=== PATIENT | male | born 1950 | race African-American/Black ===

== ENCOUNTER 2018-01-30 01:41 | Inpatient (IN) | payer OTHER ==
[~2018-01-30] VITALS: Ht 177.8 cm; Wt 88.5 kg
[~2018-01-30 01:41] MED LIST: ASPIRIN EC81 M1 PO; GOOD SENSE ASPI81 M1 PO; LYRICA75 M1 PO; METFORMIN HCL500 M2 PO; METFORMIN HCL500 MG PO; MULTIVITAMIN1 TAB PO; MULTIVITAMINS1 EAC9 PO; OMEGA 3 PO; OS-CAL 500+D31 EAC1 PO; POTASSIUM CITR10 ME1 PO; TRAMADOL-ACETA1 EACH PO; [UNRECOGNIZED DRUG - OTHER] PO
--- NOTE | 2018-01-30 12:41 | Patient Discharge Instructions ---
Acute Coronary Syndrome Inclusion Criteria At DC or during hospital stay patient has or had the following: ACS DIAGNOSIS No Discharge Core Measures Meds if any: Prescribed or Continued at Discharge Meds if any: NOT Prescribed or Continued at Discharge Congestive Heart Failure Inclusion Criteria At DC or during hospital stay patient has or had the following: CHF DIAGNOSIS No Discharge Core Measures Meds if any: Prescribed or Continued at Discharge Meds if any: NOT Prescribed or Continued at Discharge Cerebrovascular accident Inclusion Criteria At DC or during hospital stay patient has or had the following: CVA/TIA Diagnosis No Discharge Core Measures Meds if any: Prescribed or Continued at Discharge Meds if any: NOT Prescribed or Continued at Discharge Venous thromboembolism Inclusion Criteria VTE Diagnosis No VTE Type NONE VTE Confirmed by (Test) NONE Discharge Core Measures - Per Current guidelines, there needs to be overlap - treatment for the first 5 days of Warfarin therapy. - If discharged on Warfarin prior to 5 days of - overlap therapy, the patient will need to be - assessed for post discharge needs including - *Post discharge parental anticoagulation - *Warfarin and/or parental anticoagulation education - *Follow up date to check INR post discharge At least 5 days overlap therapy as Inpatient No Meds if any: Prescribed or Continued at Discharge Note: Overlap Therapy is Warfarin and Anticoagulant Meds if any: NOT Prescribed or Continued at Discharge
[2018-01-30] MEDS ORDERED: PERCOCET 5-3251 EACH PO (12:45)
[2018-01-30] MEDS ORDERED: TYLENOL EXTRA500 M2 PO (12:45)
[2018-01-30] MEDS ORDERED: COLACE100 M1 PO (12:45)
[2018-01-30] MEDS ORDERED: VITAMIN D31000 UNI2 PO (12:45)
[2018-01-30] MEDS ORDERED: DULCOLAX10 M1 RC (12:45)
[2018-01-30] MEDS ORDERED: MILK OF MA400 MG/52 PO (12:45)
--- NOTE | 2018-01-30 13:01 | Operative Report ---
Operative/Inv Procedure Report Surgery Date: 01/30/18 Name of Procedure: Anterior cervical inspection of fusion mass. Removal of hardware 3 levels anterior. Discectomy anterior decompression C7-T1. Anterior 2 level plate fixation C6 C7 T1 disc cage fusion C7-T1 with autologous iliac crest. Harvesting of anterior iliac crest right anterior. Reconstruction of donor site with Master graft. Use of fluoroscopy. Neuro lysis right T bruit Pre-Operative Diagnosis: Degenerative disc disease and radiculopathy C7-T1 status post anterior fusion. Post-Operative Diagnosis: same Estimated Blood Loss: less than 50ml Surgeon/Pit Crew Support Worker: Candido TOVAR,Joe Ramos M.D. Anesthesia: general endotracheal tube Operative/Procedure Note Note: After adequate general anesthesia was achieved the patient was placed in the supine position with the shoulders taped to the side and the head turned to the left. The previous vertical incision was used and entered sharply a blunt dissection was carried medial to the neurovascular bundle lateral to the visceral structures. Esophagus was easily identified. The deep retractors were placed. The anterior fusion was inspected and found to be solid the plate was removed easily. The dissection was carried distally over the C7-T1 interval. The disc space was entered sharply with the scalpel and debrided with the curettes and disc rongeurs. The dissection was carried posteriorly through the annulus and posterior longitudinal ligament to decompress the canal. There is significant stenosis causing adherence to these right T1 nerve root and a neuro lysis of the nerve root was performed. An incision was made over the right anterior iliac crest a subperiosteal dissection was carried medial and lateral to the crest. The oscillating saw was used to collect 2 cortical bone grafts. The wound was irrigated packed with Master graft and closed in layers with absorbable suture with hayley in the skin. The trial was used to select an 8 mm interdiscal cage which was then packed with autologous bone graft and tamped into position well away from the neural canal and anterior plate was then applied with excellent purchase from C6 to T1. Bilateral screws were placed. The entire construct was checked in AP and lateral plane and found to be appropriate. The wound was irrigated a closure the platysma was performed with absorbable suture the skin was closed with subcuticular nylon. After placement of sterile dressings the patient was placed in a cervical collar as were the stretcher
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
--- NOTE | 2018-01-30 14:22 | RADIOLOGY REPORT ---
EXAMINATION: XR CERVICAL SPINE CLINICAL INFORMATION: C7-T1 fusion in OR COMPARISON: 11/22/2014 TECHNIQUE: 2 fluoroscopic views of the cervical spine. Total fluoroscopic time 8.3 seconds. FINDINGS: The submitted images demonstrate an endotracheal tube and an orogastric tube in place. There is plate and screw fixation hardware seen on the frontal view which is not definitively seen on the lateral view. The level is not definitively localized on this image. IMPRESSION: Fluoroscopic guidance for C7-T1 fusion. Please refer to operative report for further information.
--- NOTE | 2018-01-30 20:57 | PN- Neurosurgical ---
Subjective Subjective: Patient doing well since arriving to the floor. Pain controlled. Voided postop. Tolerating clears. No other issues or complaints. Objective Vital Signs and I&Os Intake & Output 01/30 1600 01/30 0800 01/30 0000 01/29 1600 01/29 0800 01/29 0000 Intake Total Output Total Balance Patient 190 lb Weight Physical Exam: General: A, A, NAD Neck: Cervical collar in place, dsg is c/d/i Extremities: equal strength b/l, neurovascular intact, Right Hip dsg c/d/i Current Medications: Current Medications Sig/Arben Start time Last Medication Dose Route Stop Time Status Admin Acetaminophen 650 MG Q4P PRN 01/30 1230 AC PO Acetaminophen 1,000 MG .STK-MED ONE 01/30 0635 DC IV 01/30 0636 Aspirin 81 MG DAILY 01/31 0900 AC PO Bisacodyl 10 MG DAILY NEEDED PRN 01/30 1230 AC MD Calcium/Vitamin D 1 TAB DAILY 01/31 0900 AC PO Cefazolin Sodium 1,000 MG IQ8 01/30 1600 AC 01/30 IV 01/31 0801 1830 Cefazolin Sodium 2,000 MG ONCE 01/30 0000 NR IV 01/30 2359 Cholecalciferol 1,000 IU DAILY 01/31 0900 AC PO Dexamethasone 4 MG .STK-MED ONE 01/30 1253 DC IM 01/30 1254 Docusate Sodium 100 MG BID 01/30 2100 AC 01/30 PO 2032 Fentanyl Citrate 100 MCG .STK-MED ONE 01/30 0635 DC IM 01/30 0636 Hydromorphone HCl 2 MG .STK-MED ONE 01/30 1219 DC IM 01/30 1220 Hydromorphone HCl 2 MG .STK-MED ONE 01/30 1207 DC IM 01/30 1208 Hydromorphone HCl 2 MG .STK-MED ONE 01/30 0635 DC IM 01/30 0636 Insulin Aspart 0 AT BEDTIME 01/30 2100 AC SC Insulin Aspart 0 TIDAC 01/30 1700 AC 01/30 SC 1831 Ketamine HCl 50 MG .STK-MED ONE 01/30 1000 DC IM 01/30 1001 Lactated Ringer's 1,000 ML Q10H 01/30 1245 AC IV Magnesium Hydroxide 30 ML Q8P PRN 01/30 1245 AC PO Metformin HCl 500 MG DAILY 01/31 09 AC PO Midazolam HCl 2 MG .STK-MED ONE 01/30 0636 DC IM 01/30 0637 Morphine Sulfate 1 MG Q3P PRN 01/30 1230 AC IV Multivitamins 1 TAB DAILY 01/31 09 AC Therapeutic PO Ondansetron HCl 4 MG Q6P PRN 01/30 1230 AC IV Oxycodone/ 1 TAB Q4P PRN 01/30 1230 AC 01/30 Acetaminophen PO 2032 Oxycodone/ 2 TAB Q4P PRN 01/30 1230 AC Acetaminophen PO Potassium Chloride 10 MEQ DAILY 01/31 09 AC PO Pregabalin 75 MG DAILY 01/31 09 AC PO Trimethobenzamide HCl 200 MG Q6P PRN 01/30 1230 AC IM Assessment/Plan Assessment/Plan This is a 67 yo male who is POD#0 from an acdf c7-t1 with iliac crest bone graft , doing well. Ambulate/PT eval tomorrow Pain control GI/DVT Px Home meds Continue henry pt requesting to keep in until Friday at midnight Cervical Collar Regular Diet Neurovascular checks Will follow Will d/w Dr. Rey Core Measures Venous Thromboembolism VTE Risk Factors No risk factors No Mechanical VTE Prophylaxis d/t N/A MechProphylax Ordered No VTE Pharm Prophylaxis d/t NA PharmProphylax ordered
[2018-01-30 21:48] VITALS: BP 158/80
[2018-01-31 01:02] VITALS: BP 142/70
[2018-01-31 06:00] VITALS: BP 122/60
--- NOTE | 2018-01-31 09:20 | PN- Medicine Consult ---
See Addendum Assessment/PlanMedical Consult Assessment/Plan Assessment: Impression 67 year old man * s/p cervical dscectomy and fusion * DM2 * RBBB Plan: Plan -please obtain as requested cbc and bmp -monitor glucose, continue metformin and sliding scale if needed -with respect to RBBB, noted in preop notes per chart -patient doing incentive spirometry - encouraged to continue to do so DVT prophylaxis at all times as deemed appropriate by surgery Subjective Subjective: pt seen and examined temp 98.4 122/60 bp o2 94% room air Objective Last 24 Hrs of Vital Signs/I&O Vital Signs Date Time Temp Pulse Resp B/P B/P Pulse O2 O2 Flow FiO2 Mean Ox Delivery Rate 01/31 06 98.4 89 18 122/60 94 Room Air 01/31 0102 97.9 98 18 142/70 95 Room Air 01/30 2148 98.1 95 20 158/80 94 Room Air 01/30 2057 Room Air Intake & Output 01/31 1600 01/31 0800 01/31 0000 Intake Total 1000 600 Output Total 1250 550 Balance -250 50 Intake, IV 800 400 Intake, Oral 200 200 Number 0 Bowel Movements Output, Urine 1250 550 Patient 195 lb 196 lb Weight Weight Bed scale Bed scale Measurement Method Physical Exam Other Physical Findings: gen awake and alert head/neck room air, saturating 94%, collar in place cvs s1 s2 lungs clear bilaterally abd soft ext without edema Current Medications: Current Medications Sig/Arben Start time Last Medication Dose Route Stop Time Status Admin Acetaminophen 650 MG Q4P PRN 01/30 1230 AC PO Aspirin 81 MG DAILY 01/31 09 AC 01/31 PO 0823 Bisacodyl 10 MG DAILY NEEDED PRN 01/30 1230 AC FL Calcium/Vitamin D 1 TAB DAILY 01/31 0900 AC 01/31 PO 0823 Cefazolin Sodium 1,000 MG IQ8 01/30 1600 DC 01/31 IV 01/31 0801 0823 Cefazolin Sodium 2,000 MG ONCE 01/30 0000 DC IV 01/30 2359 Cholecalciferol 1,000 IU DAILY 01/31 0900 AC 01/31 PO 0823 Dexamethasone 4 MG .STK-MED ONE 01/30 1253 DC IM 01/30 1254 Docusate Sodium 100 MG BID 01/30 2100 AC 01/31 PO 0823 Hydromorphone HCl 2 MG .STK-MED ONE 01/30 1306 DC IM 01/30 1307 Hydromorphone HCl 2 MG .STK-MED ONE 01/30 1219 DC IM 01/30 1220 Hydromorphone HCl 2 MG .STK-MED ONE 01/30 1207 DC IM 01/30 1208 Insulin Aspart 0 AT BEDTIME 01/30 2100 AC SC Insulin Aspart 0 TIDAC 01/30 1700 AC 01/31 SC 0825 Ketamine HCl 50 MG .STK-MED ONE 01/30 1000 DC IM 01/30 1001 Lactated Ringer's 1,000 ML Q10H 01/30 1245 DC 01/31 IV 0043 Magnesium Hydroxide 30 ML Q8P PRN 01/30 1245 AC PO Metformin HCl 500 MG DAILY 01/31 09 AC 01/31 PO 0823 Morphine Sulfate 2 MG Q3P PRN 01/31 0730 AC IV Morphine Sulfate 1 MG Q3P PRN 01/30 1230 DC IV Multivitamins 1 TAB DAILY 01/31 09 AC 01/31 Therapeutic PO 0823 Ondansetron HCl 4 MG Q6P PRN 01/30 1230 AC IV Oxycodone/ 1 TAB Q4P PRN 01/30 1230 AC 01/31 Acetaminophen PO 0051 Oxycodone/ 2 TAB Q4P PRN 01/30 1230 AC 01/31 Acetaminophen PO 0846 Potassium Chloride 10 MEQ DAILY 01/31 09 AC 01/31 PO 0823 Pregabalin 75 MG DAILY 01/31 09 AC 01/31 PO 0823 Trimethobenzamide HCl 200 MG Q6P PRN 01/30 1230 AC IM Results Last 24 Hrs Lab/James Results: pending
--- NOTE | 2018-01-31 09:41 | PN- Orthopedic ---
Subjective Subjective: pt seen by attending, refer to Dr. Rey's handwritten note in chart pt feeling well, some difficulty swallowing pills, though able to swallow solids and liquids. Objective Vital Signs and I&Os Vital Signs Date Time Temp Pulse Resp B/P B/P Pulse O2 O2 Flow FiO2 Mean Ox Delivery Rate 01/31 600 98.4 89 18 122/60 94 Room Air 01/31 0102 97.9 98 18 142/70 95 Room Air 01/30 2148 98.1 95 20 158/80 94 Room Air 01/30 2057 Room Air Intake & Output 01/31 0000 01/30 1600 01/30 0801/30 0000 Intake Total 1000 600 Output Total 1250 550 Balance -250 50 Intake, IV 800 400 Intake, Oral 200 200 Number 0 Bowel Movements Output, Urine 1250 550 Patient 195 lb 196 lb Weight Weight Bed scale Bed scale Measurement Method Physical Exam: gen- nad incision- dressing cdi, sutures intact. (just changed by nursing per dr. rey' s request) Assessment/Plan Assessment/Plan A- POD1 sp ACDF, DONG, stable. P- swallowing difficulty likely related to intubation- watch closely. prn pain meds oob as tolerated daily dry dressing change home meds ada diet, dm meds dc planning dw attending pt seen by attending, refer to Dr. Rey's handwritten note in chart Core Measures Venous Thromboembolism VTE Risk Factors No risk factors No Mechanical VTE Prophylaxis d/t N/A MechProphylax Ordered No VTE Pharm Prophylaxis d/t NA PharmProphylax ordered
--- NOTE | 2018-01-31 09:50 | Surg Short-stay <48hrs Dis Sum ---
Visit Information Visit Dates Admission Date: 01/30/18 Discharge Date: 02/01/18 Surgical Short Stay DC Summary Admission Diagnosis: Degenerative disc disease and radiculopathy C7-T1 status post anterior fusion. Final Diagnosis: Same, s/p "Anterior cervical inspection of fusion mass. Removal of hardware 3 levels anterior. Discectomy anterior decompression C7-T1. Anterior 2 level plate fixation C6 C7 T1. disc cage fusion C7-T1 with autologous iliac crest. Harvesting of anterior iliac crest right anterior. Reconstruction of donor site with Master graft. Use of fluoroscopy" Procedure(s): "Anterior cervical inspection of fusion mass. Removal of hardware 3 levels anterior. Discectomy anterior decompression C7-T1. Anterior 2 level plate fixation C6 C7 T1. disc cage fusion C7-T1 with autologous iliac crest. Harvesting of anterior iliac crest right anterior. Reconstruction of donor site with Master graft. Use of fluoroscopy" Summary/Significant Findings: Admitted for elective above detailed cervical procedure on 01/30/18. Recovered well on surgical floor. Stable for DC from hospital per Dr. Rey. Refer to daily neurosurg notes for further details. Condition at Discharge: stable Discharge Disposition: home or self care Discharge instructions provided to patient/family: Yes Post discharge follow-up plan: Call to be seen By Dr. Rey in 1-2 weeks
[2018-01-31 14:28] VITALS: BP 120/60
[2018-01-31 22:17] VITALS: BP 134/74
[2018-02-01 06:20] VITALS: BP 142/80
--- NOTE | 2018-02-01 10:40 | PN- Medicine Consult ---
Assessment/PlanMedical Consult Assessment/Plan Assessment: Impression 67 year old man * s/p cervical dscectomy and fusion * DM2 * RBBB Plan: Plan -dc planning for today, no need for blood work, pt can get blood work with his primary physician on an outpatient basis -monitor finger sticks, continue metformin and sliding scale if needed -with respect to RBBB, noted in preop notes per chart -patient doing incentive spirometry - encouraged to continue to do so DVT prophylaxis at all times as deemed appropriate by surgery while inpatient awaiting discharge Subjective Subjective: doing well awaiting discharge dressed to leave no needs, events pain controlled Objective Last 24 Hrs of Vital Signs/I&O Vital Signs Date Time Temp Pulse Resp B/P B/P Pulse O2 O2 Flow FiO2 Mean Ox Delivery Rate 02/02 620 99.1 75 20 142/80 96 Room Air 01/31 2217 98.4 89 20 134/74 95 Room Air 01/31 1428 97.6 90 20 120/60 95 Intake & Output 02/01 1600 02/01 0800 02/01 0000 Intake Total 200 200 Output Total 300 Balance -100 200 Intake, Oral 200 200 Output, Urine 300 Physical Exam Other Physical Findings: dressed in clothes to be discharged room air saturating well normal cardiac exam clear lungs bilaterally no edema neck bandage intact Current Medications: Current Medications Sig/Arben Start time Last Medication Dose Route Stop Time Status Admin Acetaminophen 650 MG Q4P PRN 01/30 1230 AC PO Aspirin 81 MG DAILY 01/31 900 AC 02/01 PO 0846 Bisacodyl 10 MG DAILY NEEDED PRN 01/30 1230 AC 02/01 [place] 0608 Calcium/Vitamin D 1 TAB DAILY 01/31 09 AC 02/01 PO 0846 Cholecalciferol 1,000 IU DAILY 01/31 09 AC 02/01 PO 0846 Docusate Sodium 100 MG BID 01/30 2100 AC 02/01 PO 0846 Insulin Aspart 0 AT BEDTIME 01/30 2100 AC SC Insulin Aspart 0 TIDAC 01/30 1700 AC 02/01 SC 0846 Magnesium Hydroxide 30 ML Q8P PRN 01/30 1245 AC PO Metformin HCl 500 MG DAILY 01/31 900 AC 02/01 PO 0846 Morphine Sulfate 2 MG Q3P PRN 01/31 0730 AC IV Multivitamins 1 TAB DAILY 01/31 09 AC 02/01 Therapeutic PO 0846 Ondansetron HCl 4 MG Q6P PRN 01/30 1230 AC IV Oxycodone/ 1 TAB Q4P PRN 01/30 1230 AC 01/31 Acetaminophen PO 0051 Oxycodone/ 2 TAB Q4P PRN 01/30 1230 AC 02/01 Acetaminophen PO 0608 Potassium Chloride 10 MEQ DAILY 01/31 0900 AC 02/01 PO 0846 Pregabalin 75 MG DAILY 01/31 0900 AC 02/01 PO 0846 Trimethobenzamide HCl 200 MG Q6P PRN 01/30 1230 AC IM Results Last 24 Hrs Lab/James Results: na
== END 2018-02-01 13:34 | DRG 473 ==
LOC: SDA 01:41 → ENRESERV 12:17 → ENTRNSPT 14:49 → EDTRNSPT 14:51 → EDTRNSPTSTS 14:51 → 2NA 15:00 → CMPTRNSPT 15:10 → ENPENDDIS 02-01 08:16 → 2NA 02-01 08:36
PROC: 0PP304Z Removal of Internal Fixation Device from Cervical Vertebra, Open Approach (ICD-10-PCS; principal; 2018-01-30)
PROC: 0RG40A0 Fusion of Cervicothoracic Vertebral Joint with Interbody Fusion Device, Anterior Approach, Anterior Column, Open Approach (ICD-10-PCS; 2018-01-30)
PROC: 0RB50ZZ Excision of Cervicothoracic Vertebral Disc, Open Approach (ICD-10-PCS; 2018-01-30)
PROC: 01N80ZZ Release Thoracic Nerve, Open Approach (ICD-10-PCS; 2018-01-30)
PROC: 0QB20ZZ Excision of Right Pelvic Bone, Open Approach (ICD-10-PCS; 2018-01-30)
DX: M48.03 Spinal stenosis, cervicothoracic region (principal); E11.42 Type 2 diabetes mellitus with diabetic polyneuropathy; M50.13 Cervical disc disorder with radiculopathy, cervicothoracic region; E04.2 Nontoxic multinodular goiter; Z98.1 Arthrodesis status; Z79.84 Long term (current) use of oral hypoglycemic drugs; Z87.891 Personal history of nicotine dependence
CPT/HCPCS: 2NAP; 72040; 88304; 97116-GO; 97161-GP; C1713; J0131; J0690; J1100; J2405; J3250; J3490; J7120

== ENCOUNTER 2018-05-28 01:47 | Inpatient (IN) | payer OTHER ==
--- NOTE | 2018-05-18 14:47 | History & Physical Pre-Op ---
General Information and HPI MD Statement: I have seen and personally examined KHOI LUI and documented this H&P. The patient is a 68 year old M who presented with a patient stated chief complaint of neck stiffness with sharp pain that radiates into his right shoulder and stump, s/p Revision ACDF C4-T1 on 01/30/18. Source of Information: patient Exam Limitations: no limitations History of Present Illness: Khoi is a 68-year-old gentleman who is recently status post revision anterior cervical decompression and fusion C4-C7 with removal of hardware and re- instrumentation C6-T1 with an intradiscal cage at C7-T1 on 01/30/2018. Khoi was doing well postoperatively until approximately 2 weeks ago when he started to experience increasing stiffness in his neck with sharp pain that radiates to his right shoulder and into his right stump. He states that it is different than his preoperative pain but does rate it as a 7-8/10 in intensity. He states that it is worse with lying down and better when up and ambulating. He has continued to take his Lyrica as well as Tylenol. 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 Due to his progressively worsening pain and x-ray findings, Khoi wants nothing more to do with nonsurgical treatment and has been consented for a revision posterior cervical decompression and fusion C4-T1 with instrumentation and iliac crest bone grafting on 05/28/2018. Allergies/Medications Allergies: Coded Allergies: adhesive tape (Intermediate, RASH 05/27/18) Home Med list Acetaminophen (Tylenol Extra Strength) 500 MG TABLET 1 TAB PO TID PRN TEMP>101 Calcium Carbonate/Vitamin D3 (Os-Marcelo 500+D3 Caplet) 500 MG-200 TABLET 1 TAB PO BID BONE HEALTH (Reported) Cholecalciferol (Vitamin D3) 1,000 UNIT TABLET 1 TAB PO DAILY BONE HEALTH Metformin HCl (Metformin HCl ER) 500 MG TAB.ER.24 1 TAB PO DAILY DM (Reported ) Multiple Vitamin (Multivitamins) 1 EACH TABLET 1 TAB PO DAILY GENERAL HEALTH (Reported) Potassium Citrate (Potassium Citrate ER) 10 MEQ (1,080 MG) TABLET.ER 1 TAB PO BID stones (Reported) Pregabalin (Lyrica) 75 MG CAPSULE 1 CAP PO DAILY neuritis (Reported) Compliance With Home Meds: GOOD Past History Medical History Neurological: peripheral neuropathy EENT: NONE Cardiovascular: NONE Respiratory: NONE Gastrointestinal: NONE Hepatic: NONE Renal: nephrolithiasis Musculoskeletal: chronic back pain, disk herniation, degen joint disease, osteoarthritis, spinal stenosis Psychiatric: NONE Endocrine: diabetes, thyroid nodules Blood Disorders: NONE Cancer(s): NONE RN CARDIOVASCULAR/Reproductive: NONE History of MRSA: No History of VRE: No History of CDIFF: No Pneumonia Vaccine: 05/17/13 Influenza Vaccine: 07/12/13 Surgical History Pertinent Surgical History: spinal fusion, s/p spinal cord stimulator s/p ACDF C4-7 05/11 s/p Rev. PCDF C4-T1, Instr. C5-7 07/11 s/p Post. Rem. 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 PCDF C4-T1 Instr. C5-7 06/2013, s/p Rem. Hardware C3-6 10/2014, s/p right arm amputation, s/p Rev. ACDF C4-7 with Rem. Hardware and Reinstr. C6- T1, cage C7T1 01/30/18 Past Family/Social History Family History Relations & Conditions if any MOTHER, , Age 50-60; Cause: Cervical cancer. SISTER, , Age 18; Cause: Cervical cancer. FATHER, , Age 83; Cause: Diabetes mellitus. Psychosocial History Where Do You Live? Home Who Do You Live With? spouse Services at Home None Primary Language: South African Smoking Status: Former Smoker (quit 40 years ago) ETOH Use: denies use Illicit Drug Use: denies illicit drug use Other Social History: (Jessica) with 3 daughters Employment History Employment: Employed Profession/Employer: [employer] Review of Systems Review of Systems: Remarkable for the above complaints. Exam & Diagnostic Data Last 24 Hrs of Vital Signs/I&O Height: 5'10" Weight: 192lbs. Physical Exam General Appearance Alert, Oriented X3, Cooperative, No Acute Distress Skin No Rashes, No Breakdown, No Significant Lesion HEENT Atraumatic, PERRLA, EOMI, Mucous Membr. moist/pink Neck Supple, No JVD, No thryomegaly, +2 Carotid Pulse wo Bruit Lymphatic Cervical nl Cardiovascular Regular Rate, Normal S1, Normal S2, No Murmurs Lungs Clear to Auscultation Abdomen Normal Bowel Sounds, Soft, No Tenderness, No Masses Neurological Normal Gait, Normal Speech, Sensation Intact, RIGHT ARM AMPUTATION WITH MUSCLE ATROPHY Extremities No Clubbing, No Cyanosis, No Edema, Normal Pulses Vascular Normal Pulses Last 24 Hrs of Labs/James: Laboratory Tests 05/28/18 1000: Anion Gap 5, Estimated GFR > 60, BUN/Creatinine Ratio 22.5, Glucose 108 H, Calcium 9.0, Total Bilirubin 0.4, AST 17, ALT 26, Alkaline Phosphatase 84, Total Protein 6.2 L, Albumin 3.5, Globulin 2.7, Albumin/Globulin Ratio 1.3 05/27/18 2300: Urine Color YEL, Urine Clarity CLEAR, Urine pH 6.0, Ur Specific [place] 1.025, Urine Protein NEG, Urine Ketones NEG, Urine Nitrite NEG, Urine Bilirubin NEG, Urine Urobilinogen 0.2, Ur Leukocyte Esterase NEG, Ur Microscopic EXAM NOT REQUIRED, Urine Hemoglobin NEG, Urine Glucose NEG Assessment/Plan Assessment/Plan: Assessment:Suspected pseudoarthrosis at C7-T1 with right-sided cervical radiculopathy, Status post anterior cervical decompression and fusion C4-T1. Plan: Khoi is scheduled for a revision posterior cervical decompression and fusion C4-T1 with instrumentation and iliac crest bone grafting on 05/28/2018. We discussed the procedure in full detail as well as the pre-and postoperative course, follow-up care, and anticipated recovery. We also discussed the do's and don'ts and postoperative discharge instructions. We discussed the alternatives, benefits, and risks, not to exclude, , paralysis, infection, bleeding, continued pain, failure of the surgery, need for future surgery, DVT, vascular injury, CSF leak, etc., and given these risks, he still wishes to proceed. He was seen and evaluated by Dr. Lainez for his preoperative surgical clearance which was granted. Any changes in this patient's plan is based on this patient's outpatient clinical presentation. As Ranked By This Provider Problem List: 1. Diabetes mellitus 2. Osteoarthritis 3. Thyroid nodule Copies To: Joe Rey MD Medication List Current Psychiatric Med(s): Potassium Citrate 10meq BID Metformin 500mg Qday Lyrica 50mg in am and 75mg q pm ASA 81mg daily-stopped 05/12/18 Multivitamin daily Miralax prn constipation Tylenol 500mg 2 tabs po q hs Calcium 1200mg/Vit. D 25mcg BID [place] Daily-stopped 05/18/18 Joint Mobility Flex daily-stopped 05/18/18 Conjugated Linoleic acid 800mg daily-stopped 05/18/18 Attending MD Review Statement Attending Statement Attending MD Statement: examined this patient, discuss w/resident/PA/STYLIST ASSISTANT, agreed w/resident/PA/STYLIST ASSISTANT, reviewed images
[~2018-05-28] VITALS: Ht 177 cm; Wt 87.0 kg
[~2018-05-28 01:47] MED LIST changes: +COLACE100 M1 PO; +DULCOLAX10 M1 RC; +MILK OF MA400 MG/52 PO; +PERCOCET 5-3251 EACH PO; +TYLENOL EXTRA500 M2 PO; +VITAMIN D31000 UNI2 PO
--- NOTE | 2018-05-28 13:19 | Operative Report ---
Operative/Inv Procedure Report Surgery Date: 05/28/18 Name of Procedure: Sutures cervical inspection of fusion mass. Post Little tongs removal of Little tongs. Use of fluoroscopy. Laminectomies C5 6 C6 7 C7-T1 T1-T2 instrument and fusion C7-T1. Lateral fusion local bone autologous C5 6 C6 7 C7- T1 T1-T2 neuro lysis C6-C7 C8 T1. Pre-Operative Diagnosis: Nonunion foraminal stenosis C5 T2 Post-Operative Diagnosis: Same Estimated Blood Loss: 50ml to 100ml Surgeon/Cheese Grader: Candido TOVAR,Genoveva Diaz Anesthesia: general endotracheal tube Operative/Procedure Note Note: After adequate general anesthesia was achieved the patient underwent placement of Little tongs and was log rolled onto the operating table. The neck position was adjusted in neutral using fluoroscopy. The back and neck was sterilely prepped and draped and incision was made utilizing the previous incision was carried down over the dorsal elements bluntly. The deep retractors were placed and the spinous processes were purchased with the towel clip and the fusion mass was inspected and there was motion at the C C7-T1 level. The high- speed harlan bur and the curettes and Kerrisons were used to create laminectomies at C5 6 7 T1 and T2. A neuro lysis of the ganglion cystic region of the nerve roots was performed at all 4 levels including the nerves C6 C7 C8 and T1. The lateral region was decorticated and local bone harvested time of laminectomies was packed laterally from C5 through T2. Corticotomies were created and the spinous process of C7 and T1 an 18-gauge wire was passed and tightened and trimmed and bent to the midline the placement of the wire levels of the surgery were identified using fluoroscopy and examination of the fusion. The wound was copiously irrigated a closure the apical fascia was performed with absorbable suture as was subcutaneous tissue. Skin was closed with hayley. After placement sterile dressings patient log rolled off the operating table in the Little tongs removed
--- NOTE | 2018-05-28 14:00 | RADIOLOGY REPORT ---
EXAMINATION: XR CERVICAL SPINE OR CLINICAL INFORMATION: C4-T1 posterior laminectomy COMPARISON: 01/30/2018 TECHNIQUE: Intraoperative C-arm fluoroscopic imaging of the cervical spine was utilized by Dr. Rey. Nondiagnostic fluoroscopy images are submitted into the electronic picture archive. NUMBER OF SAVED IMAGES: 4. FLUOROSCOPY TIME: 25 seconds. FINDINGS: For intraoperative findings, please refer to the operative report. IMPRESSION: Fluoroscopic imaging equipment was utilized within the operating room.
[2018-05-28] MEDS ORDERED: TYLENOL EXTRA500 M2 PO (14:58)
[2018-05-28] MEDS ORDERED: MILK OF MA400 MG/52 PO (14:58)
[2018-05-28] MEDS ORDERED: DULCOLAX10 M1 RC (14:58)
[2018-05-28] MEDS ORDERED: PERCOCET 5-3251 EACH PO (14:58)
[2018-05-28] MEDS ORDERED: ASPIRIN81 M4 PO (14:58)
[2018-05-28] MEDS ORDERED: COLACE100 M1 PO (14:58)
[2018-05-28] MEDS ORDERED: MIRALAX119 GM PO (14:58)
[2018-05-28] MEDS ORDERED: LYRICA50 M1 PO (14:58)
[2018-05-28] MEDS ORDERED: LYRICA75 M1 PO (14:58)
--- NOTE | 2018-05-28 15:49 | Cons- Medical ---
Matthew Sorenson MD 05/28/18 1530: General Information and HPI Consulting Request Date of Consult: 05/28/18 Requested By: Joe Rey MD Reason for Consult: Medical management History of Present Illness: 68 year old man with past medical history of [id number]-[id number] diabetes mellitus, chronic back pain, DJD, disc herniation, osteoarthritis, spinal stenosis, peripheral neuropathy, and recent anterior cervical decompression/ fusion of C4-C7 with removal of hardware and re-instrumentation of C6-T1 with an intradiscal cage at C7-T1 on 01/30/18. Per EMR records patient was doing well postoperatively until 2 weeks ago when he started to experience increased stiffness in his neck with sharp pain that radiated to his right shoulder into his right stump. The pain was reportedly different than his preoperative pain but was quite severe and worse with lying down and improved when standing up and ambulating. Patient reportedly wants no further surgical intervention of his cervical neck disease for which he have a candidate for nonsurgical treatment. He consented for a revision/posterior cervical decompression and fusion of C4-T1 with instrumentation and iliac crest bone grafting on 05/28/18. Postoperatively patient states that he feels well and has little to no pain. Patient is oriented to person, place but not time. Review systems He otherwise denies any headache, fever, chills, vision changes, chest pain, palpitations, heartburn, shortness of breath, cough, nausea, vomiting, abdominal pain. Allergies/Medications Allergies: Coded Allergies: adhesive tape (Intermediate, RASH 05/27/18) Home Med List: Acetaminophen (Tylenol Extra Strength) 500 MG TABLET 1 TAB PO TID PRN TEMP>101 Acetaminophen (Tylenol Extra Strength) 500 MG TABLET 1 TAB PO TID PRN TEMP>101 Aspirin (Aspirin*) 81 MG TAB.CHEW 81 MG PO DAILY HEART HEALTH Bisacodyl (Dulcolax) 10 MG SUPP.RECT 1 SUP RC DAILY PRN CONSTIPATION Calcium Carbonate/Vitamin D3 (Os-Marcelo 500+D3 Caplet) 500 MG-200 TABLET 1 TAB PO BID BONE HEALTH (Reported) Cholecalciferol (Vitamin D3) 1,000 UNIT TABLET 1 TAB PO DAILY BONE HEALTH Docusate Sodium (Colace) 100 MG CAPSULE 1 CAP PO BID PRN CONSTIPATION Magnesium Hydroxide (Milk Of Magnesia) 400 MG/5 ML ORAL.SUSP 5 ML PO Q8P PRN CONSTIPATION Metformin HCl (Metformin HCl ER) 500 MG TAB.ER.24 1 TAB PO DAILY DM (Reported ) Multiple Vitamin (Multivitamins) 1 EACH TABLET 1 TAB PO DAILY GENERAL HEALTH (Reported) Oxycodone HCl/Acetaminophen (Percocet 5-325 MG Tablet) 5 MG-325 MG TABLET 1-2 TAB PO Q4-6 PRN PAIN Polyethylene Glycol 3350 (Miralax) 17 GRAM/DOSE POWDER 17 GM PO DAILY PRN CONSTIPATION Potassium Citrate (Potassium Citrate ER) 10 MEQ (1,080 MG) TABLET.ER 1 TAB PO BID stones (Reported) Pregabalin (Lyrica) 75 MG CAPSULE 1 CAP PO DAILY neuritis (Reported) Pregabalin (Lyrica) 50 MG CAPSULE 50 MG PO QAM NEUROPATHY Pregabalin (Lyrica) 75 MG CAPSULE 75 MG PO QPM NEUROPATHY Review of Systems Review of Systems Constitutional: Reports: see HPI. Past History Medical History Neurological: peripheral neuropathy EENT: NONE Cardiovascular: NONE Respiratory: NONE Gastrointestinal: NONE Hepatic: NONE Renal: nephrolithiasis Musculoskeletal: chronic back pain, disk herniation, degen joint disease, osteoarthritis, spinal stenosis Psychiatric: NONE Endocrine: diabetes, thyroid nodules Blood Disorders: NONE Cancer(s): NONE FOOD SERVICE ATTENDANT/Reproductive: NONE Surgical History Surgical History: spinal fusion, s/p spinal cord stimulator s/p ACDF C4-7 05/11 s /p Rev. PCDF C4-T1, Instr. C5-7 07/11 s/p Post. Rem. 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 PCDF C4-T1 Instr. C5-7 06/2013 s/p Rem. Hardware C3-6 10/2014 s/p right arm amputation s/p Rev. ACDF C4-7 with Rem. Hardware and Reinstr. C6-T1, cage C7T1 01/30/18 Family History Relations & Conditions If Any: MOTHER, , Age 50-60; Cause: Cervical cancer. SISTER, , Age 18; Cause: Cervical cancer. FATHER, , Age 83; Cause: Diabetes mellitus. Psychosocial History Where Do You Live? Home Who Do You Live With? spouse Services at Home: None Primary Language: Frisian Smoking Status: Former Smoker (quit 40 years ago) ETOH Use: denies use Illicit Drug Use: denies illicit drug use Other Social History: (Jessica) with 3 daughters Employment History Employment: Employed Profession/Employer: [email or web address] Exam & Diagnostic Data Last 24 Hrs of Vital Signs/I&O See paper chart Physical Exam Other Physical Findings: General - well developed, overweight elderly -Omani man in no acute distress HEENT - NCAT, PERRL, EOMI, anicteric sclera Neck - Supple, no JVD, trachea midline, soft c-collar in place Cardio - S1, S2 w/o murmurs/gallops/rubs Resp - CTA bilaterally w/o wheezing/rhochi/crackles GI - soft, nontender, nondistended, bowel sounds present Neuro - Awake and alert, CN II - XII grossly intact Extremities - no edema, pulses intact, right arm amputation Last 24 Hrs of Labs/James: Laboratory Tests 05/28/18 1000: Anion Gap 5, Estimated GFR > 60, BUN/Creatinine Ratio 22.5, Glucose 108 H, Calcium 9.0, Total Bilirubin 0.4, AST 17, ALT 26, Alkaline Phosphatase 84, Total Protein 6.2 L, Albumin 3.5, Globulin 2.7, Albumin/Globulin Ratio 1.3 05/27/18 2300: Urine Color YEL, Urine Clarity CLEAR, Urine pH 6.0, Ur Specific [place] 1.025, Urine Protein NEG, Urine Ketones NEG, Urine Nitrite NEG, Urine Bilirubin NEG, Urine Urobilinogen 0.2, Ur Leukocyte Esterase NEG, Ur Microscopic EXAM NOT REQUIRED, Urine Hemoglobin NEG, Urine Glucose NEG Assessment/Plan Assessment/Plan 68-year-old man with multiple medical problems significant for significant cervical spine disease for which she is required multiple surgeries most recently an anterior cervical decompression with multilevel fusion complicated by neck pain for which a revision/posterior cervical decompression and fusion of C4 through T1 was performed during this admission on 05/28/18. Postoperatively patient appears well as no complaints. Vital signs significant for mildly elevated systolic blood pressures postoperatively. Physical examination is unremarkable. Patient should have his blood sugars checked before meals and at night to ensure that they are within normal limits and a low dose pre-meal insulin should be started. Postop care per surgical team. Patient should undergo a PT and possibly an OT evaluation prior to discharge to ensure that his ADLs/IADLs are not impacted. Patient should have at least mechanical DVT prophylaxis, deferment of antiplatelet/anticoagulation to surgical team when appropriate. 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 Cervical spine disease 2. Diabetes mellitus Consult Acknowledgment - Thank you for your consult request. Dwight TOVAR,[facility] 05/28/18 7657: Assessment/Plan Consult Acknowledgment - Thank you for your consult request. Attending MD Review Statement Attending Statement Attending MD Statement: examined this patient, discuss w/resident/PA/IRRIGATION DISTRICT MANAGER, agreed w/resident/PA/IRRIGATION DISTRICT MANAGER, discussed with family, reviewed EMR data (avail), discussed with nursing, discussed with case mgmt, reviewed images, amended to note Attending Assessment/Plan: 68 y/o M with pmh sig for hlz-sarmmna-bucqmyqsv diabetes mellitus, chronic back pain, DJD, disc herniation, osteoarthritis, spinal stenosis, peripheral neuropathy, and recent anterior cervical decompression/fusion of C4-C7 with removal of hardware and re-instrumentation of C6-T1 with an intradiscal cage at C7-T1 on 01/30/18. Today he is s/p revision posterior cervical decompression and fusion C4-T1 with instrumentation and iliac crest bone grafting 2/2 to having increasing stiffness in his neck with sharp pain that radiates to his right shoulder and into his right stump patient is postop day 0 today. Medical consult is obtained for the comanagement of his diabetes and other medical conditions. Patient was seen in the recovery unit. He was still under some effect of anesthesia. He denied any pain. He had a soft collar on around his neck. Patient does take Lyrica for his neuropathy. He is also on metformin for his diabetes. His aspirin was on hold recently for this anticipated surgery. He is afebrile with a slightly high blood pressure systolic blood pressure in 150s. Heart rate was 90. On exam; Still somewaht lethargic but arousable and able to communicate. cv; s1,s2, rrr resp; clear abd; soft, nt, bs+ ext; no edema Laboratory Tests 05/28 05/27 1000 2300 Chemistry Sodium (137 - 145 mmol/L) 139 Potassium (3.5 - 5.1 mmol/L) 4.3 Chloride (98 - 107 mmol/L) 108 H Carbon Dioxide (22 - 30 mmol/L) 25 Anion Gap (5 - 16) 5 BUN (9 - 20 mg/dL) 18 Creatinine (0.7 - 1.2 mg/dL) 0.8 Estimated GFR (>60 ml/min) > 60 BUN/Creatinine Ratio (7 - 25 %) 22.5 Glucose (65 - 99 mg/dL) 108 H Calcium (8.4 - 10.2 mg/dL) 9.0 Total Bilirubin (0.2 - 1.3 mg/dL) 0.4 AST (17 - 59 U/L) 17 ALT (21 - 72 U/L) 26 Alkaline Phosphatase (< 127 U/L) 84 Total Protein (6.3 - 8.2 g/dL) 6.2 L Albumin (3.5 - 5.0 g/dL) 3.5 Globulin (1.9 - 4.2 gm/dL) 2.7 Albumin/Globulin Ratio (1.1 - 2.2 %) 1.3 Urines Urine Color (YEL,AMB,STR) YEL Urine Clarity (CLEAR) CLEAR Urine pH (5.0 - 8.0) 6.0 Ur Specific [place] (1.001 - 1.035) 1.025 Urine Protein (NEG,<30 MG/DL) NEG Urine Ketones (NEG) NEG Urine Nitrite (NEG) NEG Urine Bilirubin (NEG) NEG Urine Urobilinogen (0.1 - 1.0 EU/dl) 0.2 Ur Leukocyte Esterase (NEG) NEG Ur Microscopic EXAM NOT REQUIRED Urine Hemoglobin (NEG) NEG Urine Glucose (N MG/DL) NEG Assessment and recommendations; 68 y/o M with pmh sig for yak-vzwuuqq-ncfkmwouy diabetes mellitus, chronic back pain, DJD, disc herniation, osteoarthritis, spinal stenosis, peripheral neuropathy, and recent anterior cervical decompression/fusion of C4-C7 with removal of hardware and re-instrumentation of C6-T1 with an intradiscal cage at C7-T1 on 01/30/18. Today he is s/p revision posterior cervical decompression and fusion C4-T1 with instrumentation and iliac crest bone grafting 2/2 to having increasing stiffness in his neck with sharp pain that radiates to his right shoulder and into his right stump patient is postop day 0 today. Medical consult is obtained for the comanagement of his diabetes and other medical conditions. Patient has been started back on his metformin. Agree with adding sliding scale insulin and Accu-Cheks. Patient has also resumed back on his Lyrica, aspirin per spine surgery. He is started on pain management. He is also started on bowel regimen. Of note patient takes potassium citrate for history of kidney stones. Apparently he will be finishing the course soon. Spine surgery had continued that which is okay from medical standpoint. His potassium is within normal limits. For his DVT prophylaxis: He is on ALPS. Encourage physical therapy and incentive spirometery. Thank you for allowing us to participate in the care of your patient. Will follow along with you.
--- NOTE | 2018-05-28 17:21 | PN- Student ---
Atiya Chew 05/28/18 1709: Subjective Subjective: Pt denies any pain at this time. Denies any numbness or tinghling in his extremities. Denies CP, SOC, nausea, vomiting, headache or dizziness. Has not urinated since prior to surgery. Objective Objective: Vitals: See EMR. Noted to be tachycardic to 103. General: Middle aged man, sitting up in bed, cervical collar in place, NAD. Cardio: Regular rate and rhythm. S1 and S2 heard. No murmurs, rubs or gallops. Pulm: Breath sounds heard in anterior and lateral lung kasper with no wheezes, rhonchi or rales. Abdomen: Soft, non-tender, non-distended. Normoactive bowel sounds. Extremities: LUE game and fish protector strength 5/5. Gross sensation intact and equal in bilateral lower extremities. Gross motor function intact in the bilateral lower extremities. Plantar and dorsiflexion 5/5 bilaterally. Calves are soft and non- tender bilaterally. Results Results: Laboratory Tests 05/28/18 1000: Anion Gap 5, Estimated GFR > 60, BUN/Creatinine Ratio 22.5, Glucose 108 H, Calcium 9.0, Total Bilirubin 0.4, AST 17, ALT 26, Alkaline Phosphatase 84, Total Protein 6.2 L, Albumin 3.5, Globulin 2.7, Albumin/Globulin Ratio 1.3 05/27/18 2300: Urine Color YEL, Urine Clarity CLEAR, Urine pH 6.0, Ur Specific [place] 1.025, Urine Protein NEG, Urine Ketones NEG, Urine Nitrite NEG, Urine Bilirubin NEG, Urine Urobilinogen 0.2, Ur Leukocyte Esterase NEG, Ur Microscopic EXAM NOT REQUIRED, Urine Hemoglobin NEG, Urine Glucose NEG Assessment/Plan Assessment: A: Pt is a 68 year old male POD#0 s/p C4-T1 posterior laminectomies with fusion and iliac crest bone grafting. PMH including hfe-xwpedaf-kbiafazqm diabetes mellitus, chronic back pain, DJD, disc herniation, osteoarthritis, spinal stenosis, and peripheral neuropathy. Pt's pain is currently well controlled post -operatively. Plan: Plan: Continue monitoring pain and tx as needed. Continue home medications. IV fluids over night. Pt due to void. Continue to monitor vitals. May advance to regular diet. PT to see the patient in the morning. ALPs for DVT prophylaxis. D/C planning, likely home tomorrow. Will discuss with surgical PAs and attending Dionne Vasquez 05/28/18 3547: Assessment/Plan Plan: Agree with above. 24h lynda-op abx plan for dc tomorrow pending clearence by PT
[2018-05-28 17:45] VITALS: BP 150/80
[2018-05-28 21:03] VITALS: BP 140/80
[2018-05-29 05:48] VITALS: BP 124/77
--- NOTE | 2018-05-29 10:35 | Surg Short-stay <48hrs Dis Sum ---
Visit Information Visit Dates Admission Date: 05/28/18 Discharge Date: 05/30/18 Surgical Short Stay DC Summary Admission Diagnosis: Nonunion foraminal stenosis C5-T2 Final Diagnosis: Nonunion foraminal stenosis C5-T2 Procedure(s): Surgery Date: 05/28/18 Name of Procedure: Sutures cervical inspection of fusion mass. Post Little tongs removal of Little tongs. Use of fluoroscopy. Laminectomies C5 6 C6 7 C7-T1 T1-T2 instrument and fusion C7-T1. Lateral fusion local bone autologous C5 6 C6 7 C7- T1 T1-T2 neuro lysis C6-C7 C8 T1. Summary/Significant Findings: Electively scheduled surgical cervical inspection of fusion mass, laminectomies C5-6, C6-7, C7-T1, T1-T2 instrument and fusion C7-T1, and lateral fusion with local bone autologous C5-6, C6-7, C7-T1, T1-T2 neuro lysis, C6-C7, C8-T1 by on 05/28/18, for nonunion foraminal stenosis C5-T2. Pain control transitioned from iv to oral medication as able. Soft cervical collar placed for comfort. Evaluated by PT for mobilization and assessment for needs. Discharged to home once tolerating diet, pain controlled, and cleared by PT. Condition at Discharge: stable Discharge Disposition: home or self care Discharge instructions provided to patient/family: Yes Post discharge follow-up plan: follow up with as directed
--- NOTE | 2018-05-29 10:37 | PN- Medicine Consult ---
Delta TOVARMatthew 05/29/18 1035: Assessment/PlanMedical Consult Assessment/Plan Assessment: 68-year-old man with multiple medical problems significant for significant cervical spine disease for which she is required multiple surgeries most recently an anterior cervical decompression with multilevel fusion complicated by neck pain for which a revision/posterior cervical decompression and fusion of C4 through T1 was performed during this admission on 05/28/18. Patient admits to feeling a little bit "woozy" today and is reportedly staying unti tomorrow. Vitals remain in normal limits. Physical examination is unchanged. Blood sugars remain controll with oral hypoglycemics. Patient is to work with PT this morning. Patients medical issues appear stable and require now further change while inhospital. Continue current management and reconsult as needed; will sign off for now. Patient stable for discharge from medical perspective. 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 Cervical spine disease 2. Diabetes mellitus Subjective Subjective: Patient seen and examined. He is seen sitting upright in his chair at bedside resting comfortably. He appears to be in no acute distress. He reports feeling a little woozy today and will reportedly stay one more day. He otherwise denies any complaints and is AAOX3 today. He denies any headache, fever, chills, vision changes, chest pain, palpitations, shortness of breath, cough, nausea, vomiting, constipation, or abdominal pain. Review of Systems Constitutional: Reports: see HPI. Objective Last 24 Hrs of Vital Signs/I&O Vital Signs Date Time Temp Pulse Resp B/P B/P Pulse O2 O2 Flow FiO2 Mean Ox Delivery Rate 05/29 0548 98.9 78 18 124/77 95 Room Air 05/28 2103 98.1 93 18 140/80 92 05/28 1920 Room Air 05/28 1745 98.0 92 18 150/80 98 Room Air Intake & Output 05/29 1600 05/29 0800 05/29 0000 Intake Total 200 1350 Output Total 350 1500 Balance -150 -150 Intake, IV 630 Intake, Oral 200 720 Number 0 Bowel Movements Output, Urine 350 1500 Patient 87 kg Weight Physical Exam Other Physical Findings: General - well developed, overweight elderly -[place] man in no acute distress HEENT - NCAT, PERRL, EOMI, anicteric sclera Neck - Supple, no JVD, trachea midline, midline posterior surgical dressing in place without any drainage Cardio - S1, S2 w/o murmurs/gallops/rubs Resp - CTA bilaterally w/o wheezing/rhochi/crackles GI - soft, nontender, nondistended, bowel sounds present Neuro - Awake and alert, CN II - XII grossly intact Extremities - no edema, pulses intact, right arm amputation Current Medications: Current Medications Sig/Arben Start time Last Medication Dose Route Stop Time Status Admin Acetaminophen 650 MG Q4P PRN 05/28 1445 AC PO Acetaminophen 0 .STK-MED ONE 05/28 1054 DC IV Aspirin 81 MG DAILY 05/29 09 AC 05/29 PO 0745 Bisacodyl 10 MG DAILY NEEDED PRN 05/28 1445 AC NM Calcium 600 MG BID 05/28 2100 AC 05/29 PO 0745 Cefazolin Sodium 1,000 MG IQ8 05/28 1600 DC 05/29 IV 05/29 0801 0744 Cefazolin Sodium 2,000 MG ONCE 05/28 0000 DC IV 05/28 2359 Cholecalciferol 1,000 IU DAILY 05/29 0900 AC 05/29 PO 0745 Docusate Sodium 100 MG BID 05/28 2100 AC 05/29 PO 0745 Fentanyl Citrate 0 .STK-MED ONE 05/28 1054 DC .ROUTE Hydromorphone HCl 0 .STK-MED ONE 05/28 1432 DC .ROUTE Hydromorphone HCl 0 .STK-MED ONE 05/28 1415 DC .ROUTE Hydromorphone HCl 0 .STK-MED ONE 05/28 1054 DC .ROUTE Insulin Aspart 0 AT BEDTIME 05/28 2100 AC SC Insulin Aspart 0 TIDAC 05/28 1700 AC SC Lactated Ringer's 1,000 ML Q10H 05/28 1445 AC 05/29 IV 0010 Magnesium Hydroxide 30 ML Q8P PRN 05/28 1445 AC PO Metformin HCl 500 MG DAILY 05/29 0900 AC 05/29 PO 0745 Midazolam HCl 0 .STK-MED ONE 05/28 1054 DC .ROUTE Morphine Sulfate 1 MG Q4 HRS NEEDED PRN 05/28 1445 AC IV Multivitamins 1 TAB DAILY 05/29 0900 AC 05/29 Therapeutic PO 0745 Ondansetron HCl 4 MG Q6P PRN 05/28 1445 AC IV Oxycodone/ 1 TAB Q4P PRN 05/28 1445 AC 05/28 Acetaminophen PO 2003 Oxycodone/ 2 TAB Q4P PRN 05/28 1445 AC 05/29 Acetaminophen PO 0010 Polyethylene Glycol 17 GM DAILY PRN 05/28 1500 AC 05/29 PO 0745 Potassium Citrate 10 MEQ BID 05/28 2100 AC 05/29 PO 0745 Pregabalin 50 MG QAM 05/29 0900 AC 05/29 PO 0745 Pregabalin 75 MG QPM 05/28 2100 AC 05/28 PO 2319 Trimethobenzamide HCl 200 MG Q6P PRN 05/28 1445 AC IM Results Last 24 Hrs Lab/James Results: see paper chart Dwight TOVAR,[facility] 05/29/18 1105: Attending MD Review Statement Attending Sign Off Attending Cosign Statement: I have: examined this patient, reviewed [facility] EMR data, personally reviewd images, discussd w/resident/PA/EXCEPTIONAL NEEDS TEACHER, discussed mgmt plan w/barry, agreed w/resident/ PA/EXCEPTIONAL NEEDS TEACHER, amended to note. Other Findings: Patient seen and examined, feels ok. Denies any pain. FSG is acceptable. Vss. Vital Signs Date Time Temp Pulse Resp B/P B/P Pulse O2 O2 Flow FiO2 Mean Ox Delivery Rate 05/29 0548 98.9 78 18 124/77 95 Room Air 05/28 2103 98.1 93 18 140/80 92 05/28 1920 Room Air 05/28 1745 98.0 92 18 150/80 98 Room Air on exam; aox3, nad. cv; s1,s2, rrr resp; clear abd; soft, nt, bs+ ext; no edema no labs. Assessment and recommendations: 68 y/o M with pmh sig for eln-haocrdd-wdzifqhgu diabetes mellitus, chronic back pain, DJD, disc herniation, osteoarthritis, spinal stenosis, peripheral neuropathy, and recent anterior cervical decompression/fusion of C4-C7 with removal of hardware and re-instrumentation of C6-T1 with an intradiscal cage at C7-T1 on 01/30/18. Today he is s/p revision posterior cervical decompression and fusion C4-T1 with instrumentation and iliac crest bone grafting 2/2 to having increasing stiffness in his neck with sharp pain that radiates to his right shoulder and into his right stump patient is postop day # 1 today. Medical consult is obtained for the comanagement of his diabetes and other medical conditions. Patient has been resumed back on his metformin. His blood sugars are running in acceptable range. He is also on Accu-Cheks with sliding scale insulin. He is also resumed back on his Lyrica, aspirin. Pain control is done with Percocet. Patient is working with physical therapy. For DVT prophylaxis he is on ALPS. Medical issues are stable. Medicine will sign off. Please call with questions.
[2018-05-29 14:36] VITALS: BP 140/80
--- NOTE | 2018-05-29 16:11 | PN- Orthopedic ---
Subjective Subjective: Patient is c/o right stump phantom pain. + expected postop incisional pain. + appetite. + voiding and flatus. No N/V. No fever/chills. Jamison. po. Ambulating without difficulty. Review of Systems: Remarkable for the above complaints. Objective Vital Signs and I&Os Vital Signs Date Time Temp Pulse Resp B/P B/P Pulse O2 O2 Flow FiO2 Mean Ox Delivery Rate 05/29 1436 97.8 68 18 140/80 94 Room Air 05/29 0548 98.9 78 18 124/77 95 Room Air 05/28 2103 98.1 93 18 140/80 92 05/28 1920 Room Air 05/28 1745 98.0 92 18 150/80 98 Room Air Intake & Output 05/29 1600 05/29 0800 05/29 0000 05/28 1600 05/28 0800 05/28 0000 Intake Total 200 1350 Output Total 350 1500 Balance -150 -150 Intake, IV 630 Intake, Oral 200 720 Number 0 Bowel Movements Output, Urine 350 1500 Patient 192 lb Weight Physical Exam General Appearance: well developed/nourished, alert, awake, moderate distress Neck: Incision C/D/I. Dressing changed. Respiratory: normal breath sounds, no respiratory distress Cardiovascular: regular rate/rhythm Abdomen: normal bowel sounds, soft, non-tender Neurologic/Psychiatric: Neurovascular exam in nader. UE/LE is unchanged and stable with no new or worsening gross motor or sensory loss. Skin: intact, normal color, warm/dry Assessment/Plan Assessment/Plan Assessment; S/p Rev. PCDF C5-T2 (right) with Instr. (C7T1) and local bone Plan: Continue pain control with Percocet. Ambulate with PT Ice prn pain. Plan D/C in am if stable Do's and Don'ts explained. Disch. Instr. given Will F/U as outpatient. Problem List: 1. Diabetes mellitus 2. Thyroid nodule 3. Osteoarthritis 4. Cervical spine disease Core Measures Venous Thromboembolism VTE Risk Factors Surgery No Mechanical VTE Prophylaxis d/t Early Ambulation No VTE Pharm Prophylaxis d/t NA PharmProphylax ordered Attending MD Review Statement Attending Statement Attending MD Statement: examined this patient, discuss w/resident/PA/FELT CHECKER, agreed w/resident/PA/FELT CHECKER
[2018-05-29 21:18] VITALS: BP 133/73
[2018-05-30 07:38] VITALS: BP 146/75
[2018-05-30 14:52] VITALS: BP 135/75
--- NOTE | 2018-05-30 15:38 | PN- Orthopedic ---
Subjective Subjective: Patient c/o being tired and sluggish. + right stump "phamtom pain" but less than preop. No neck pain. No N/V, fever/chills. Jamison. po. Ambulating without difficulty. +voiding and flatus. Review of Systems: Rewmarkable for the above complaints. Objective Vital Signs and I&Os Vital Signs Date Time Temp Pulse Resp B/P B/P Pulse O2 O2 Flow FiO2 Mean Ox Delivery Rate 05/30 1452 99.3 81 18 135/75 94 Room Air 05/30 0738 99.4 92 20 146/75 94 05/29 2118 98.9 82 19 133/73 95 Room Air Intake & Output 05/30 1600 05/30 0800 05/30 0000 05/29 1600 05/29 0800 05/29 0000 Intake Total 240 989 722 5111 Output Total 350 1500 Balance 240 480 -150 -150 Intake, IV 630 Intake, Oral 240 480 200 720 Number 0 Bowel Movements Output, Urine 350 1500 Patient 192 lb Weight Physical Exam General Appearance: well developed/nourished, awake, mild distress, sleepy Neck: Incision C/D/I. Dressing changed. Respiratory: normal breath sounds, no respiratory distress Cardiovascular: regular rate/rhythm Abdomen: normal bowel sounds, soft, non-tender Neurologic/Psychiatric: Neurovascular exam is unchanged and stable with no new or worsening gross motor or sensory loss in nader. UE/LE. Skin: intact, normal color, warm/dry Assessment/Plan Assessment/Plan Assessment: S/p Rev. PCDF C5-T2 Right with INstr. C7-T1 and local bone. Plan: Limit Percocet use due to drowsiness. Continue with Tylenol prn pain. Ice prn pain Do's and Don'ts explained Disch. Instr. given Will F/U as outpatient. Problem List: 1. Diabetes mellitus 2. Osteoarthritis 3. Thyroid nodule 4. Cervical spine disease Core Measures Venous Thromboembolism VTE Risk Factors Surgery No Mechanical VTE Prophylaxis d/t Early Ambulation No VTE Pharm Prophylaxis d/t NA PharmProphylax ordered Attending MD Review Statement Attending Statement Attending MD Statement: discuss w/resident/PA/SAWDUST MACHINE OPERATOR, agreed w/resident/PA/SAWDUST MACHINE OPERATOR
== END 2018-05-30 18:30 | DRG 460 ==
LOC: SDA 01:47 → ENRESERV 15:17 → ENTRNSPT 17:07 → EDTRNSPTSTS 17:30 → EDTRNSPT 17:30 → 2NB 17:37 → EDTRNSPT 17:47 → CMPTRNSPT 17:48 → 2NB 05-30 18:30
PROC: 0RG60A0 Fusion of Thoracic Vertebral Joint with Interbody Fusion Device, Anterior Approach, Anterior Column, Open Approach (ICD-10-PCS; principal; 2018-05-28)
PROC: 0RB90ZZ Excision of Thoracic Vertebral Disc, Open Approach (ICD-10-PCS; principal; 2018-05-28)
PROC: 0RB50ZZ Excision of Cervicothoracic Vertebral Disc, Open Approach (ICD-10-PCS; principal; 2018-05-28)
PROC: 0RB30ZZ Excision of Cervical Vertebral Disc, Open Approach (ICD-10-PCS; principal; 2018-05-28)
PROC: 0RG20A0 Fusion of 2 or more Cervical Vertebral Joints with Interbody Fusion Device, Anterior Approach, Anterior Column, Open Approach (ICD-10-PCS; principal; 2018-05-28)
PROC: 0RG40A0 Fusion of Cervicothoracic Vertebral Joint with Interbody Fusion Device, Anterior Approach, Anterior Column, Open Approach (ICD-10-PCS; principal; 2018-05-28)
PROC: 0RG2070 Fusion of 2 or more Cervical Vertebral Joints with Autologous Tissue Substitute, Anterior Approach, Anterior Column, Open Approach (ICD-10-PCS; principal; 2018-05-28)
PROC: 0RP40AZ Removal of Interbody Fusion Device from Cervicothoracic Vertebral Joint, Open Approach (ICD-10-PCS; principal; 2018-05-28)
PROC: 00NX0ZZ Release Thoracic Spinal Cord, Open Approach (ICD-10-PCS; principal; 2018-05-28)
PROC: 00NW0ZZ Release Cervical Spinal Cord, Open Approach (ICD-10-PCS; principal; 2018-05-28)
DX: M48.02 Spinal stenosis, cervical region (principal); Z98.1 Arthrodesis status; E11.42 Type 2 diabetes mellitus with diabetic polyneuropathy; Z79.84 Long term (current) use of oral hypoglycemic drugs; E04.1 Nontoxic single thyroid nodule; Z87.891 Personal history of nicotine dependence; Z89.201 Acquired absence of right upper limb, unspecified level
CPT/HCPCS: 2NBP; 76000; 81003; 97116-GO; 97161-GP; J0131; J0690; J3490; J7120